=== PATIENT | male | born 1960 | race Caucasian/White ===

== ENCOUNTER 2017-11-03 17:34 | Emergency (ER) | payer OTHER ==
[2017-11-03 17:59] VITALS: RESP 18
--- NOTE | 2017-11-03 18:52 | ED PDOC ---
Arrival/HPI - General Chief Complaint: GI Problem Time Seen by Provider: 11/03/17 18:45 Historian: Patient - History of Present Illness Narrative History of Present Illness (Text): 11/03/17 18:47 A 57 year old male, whose past medical history includes hyperlipidemia and diabetes, presents to the emergency department for a complaint of chest pain since this morning. He notes that he woke up this morning with the chest pain which radiated to the back with associated tingling sensation in both hands. The patient describes the chest hanks as pressure. He notes that he is currently experiencing heartburn and nausea. The patient denies fevers, chills, headache, dizziness, shortness of breath, dyspnea on exertion, cough, abdominal pain, vomiting, diarrhea, back pain, neck pain, urinary/bowel changes, or any other complaint. Time/Duration: Other (This morning) Symptom Onset: Sudden Symptom Course: Unchanged Activities at Onset: Rest, Light Context: Home Past Medical History - Provider Review Nursing Documentation Reviewed: Yes - Infectious Disease Hx of Infectious Diseases: None - Neurological Other/Comment: Diabetic neuropathy in hands and feet. - Endocrine/Metabolic Hx Diabetes Mellitus Type 2: Yes - Psychiatric Hx Substance Use: No Family/Social History - Physician Review Nursing Documentation Reviewed: Yes Family/Social History: No Known Family HX Smoking Status: Never Smoked Hx Alcohol Use: No Hx Substance Use: No Allergies/Home Meds Allergies/Adverse Reactions: Allergies No Known Allergies Allergy (Verified 11/03/17 18:00) Home Medications: Home Meds Medication Instructions Recorded Confirmed Gabapentin [Neurontin] 1 tab PO TID 11/03/17 11/03/17 MetFORMIN [glucoPHAGE] 1 tab PO DAILY 11/03/17 11/03/17 Review of Systems - Physician Review All systems were reviewed & negative as marked: Yes - Review of Systems Constitutional: absent: Fevers, Night Sweats Respiratory: absent: SOB, Cough Cardiovascular: Chest Pain (Chest pressure. radiating to back). absent: SHEPHERD Gastrointestinal: Nausea. absent: Abdominal Pain, Vomiting Neurological: Other (Tingling sensation of both hands.) Physical Exam Vital Signs Reviewed: Yes Vital Signs Temp Pulse Resp BP Pulse Ox 11/03/17 20:45 88 18 126/72 100 11/03/17 17:57 98.7 F 107 H 18 148/82 96 Temperature: Afebrile Blood Pressure: Normal Pulse: Tachycardic Respiratory Rate: Normal Appearance: Positive for: Well-Appearing, Non-Toxic, Comfortable Pain Distress: None Mental Status: Positive for: Alert and Oriented X 3 Finger Stick Blood Glucose: 233 - Systems Exam Head: Present: Atraumatic, Normocephalic Pupils: Present: PERRL Extroacular Muscles: Present: EOMI Conjunctiva: Present: Normal Mouth: Present: Moist Mucous Membranes Neck: Present: Normal Range of Motion Respiratory/Chest: Present: Clear to Auscultation, Good Air Exchange. No: Respiratory Distress, Accessory Muscle Use Cardiovascular: Present: Regular Rate and Rhythm, Normal S1, S2. No: Murmurs Abdomen: No: Tenderness, Distention, Peritoneal Signs Back: Present: Normal Inspection Upper Extremity: Present: Normal Inspection. No: Cyanosis, Edema Lower Extremity: Present: Normal Inspection. No: Edema Neurological: Present: GCS=15, CN II-XII Intact, Speech Normal Skin: Present: Warm, Dry, Normal Color. No: Rashes Psychiatric: Present: Alert, Oriented x 3, Normal Insight, Normal Concentration Medical Decision Making ED Course and Treatment: 11/03/17 19:13 Impression: A 57 year old male presents to the emergency department with a complaint of chest pressure radiating to his back and tingling sensation in his hands. Differential Diagnosis included but are not limited to: Chest Pain r/o ND vs. gastritis Plan: -- EKG -- Chest X-ray -- Urinalysis -- Labs -- Reassess and disposition Progress Notes: 11/03/17 19:15 EKG: Ordered, reviewed, and independently interpreted the EKG. Rate : 104BPM Rhythm : Sinus Tachycardia Interpretation : Normal axis chest x-ray: no acute pulmonary disease - Lab Interpretations Lab Results: 11/03/17 18:00 11/03/17 18:00 Lab Results 11/03/17 21:45: POC Glucose (mg/dL) 81 11/03/17 19:30: Urine Color Yellow, Urine Appearance Clear, Urine pH 6.0, Ur Specific [place] <= 1.005, Urine Protein Negative, Urine Glucose (UA) >=1000, Urine Ketones Negative, Urine Blood Negative, Urine Nitrate Negative, Urine Bilirubin Negative, Urine Urobilinogen 0.2, Ur Leukocyte Esterase Negative 11/03/17 18:08: POC Glucose (mg/dL) 233 H 11/03/17 18:00: Sodium 136, Potassium 3.8, Chloride 97 L, Carbon Dioxide 26, Anion Gap 16, BUN 13, Creatinine 0.8, Est GFR ( Amer) > 60, Est GFR (Non- Af Amer) > 60, Random Glucose 256 H, Calcium 9.5, Magnesium 2.1, Total Bilirubin 0.6, AST 25, ALT 25, Alkaline Phosphatase 73, Lactate Dehydrogenase 502, Total Creatine Kinase 184, Troponin I < 0.01, Total Protein 7.5, Albumin 4.2, Globulin 3.3, Albumin/Globulin Ratio 1.3 11/03/17 18:00: WBC 9.6, RBC 4.41, Hgb 13.6 L, Hct 39.1 L, MCV 88.7, MCH 30.8, MCHC 34.8, RDW 12.5, Plt Count 210, MPV 10.5, Gran % 75.5 H, Lymph % (Auto) 16.2 L, Edwards % (Auto) 7.0 H, Eos % (Auto) 1.0 L, Baso % (Auto) 0.3, Gran # 7.27 H, Lymph # (Auto) 1.6, Edwards # (Auto) 0.7 H, Eos # (Auto) 0.1, Baso # (Auto) 0.03 I have reviewed the lab results: Yes - RAD Interpretation Radiology Orders: 11/03/17 18:51 CHEST PORTABLE [RAD] Stat - EKG Interpretation Interpreted by ED Physician: Yes Type: 12 lead EKG - Medication Orders Current Medication Orders: Discontinued Medications Acetaminophen (Tylenol 325mg Tab) 975 mg PO STAT STA Stop: 11/03/17 20:46 Last Admin: 11/03/17 20:57 Dose: 975 mg MAR Pain/Vitals Document 11/03/17 20:57 RG (Rec: 11/03/17 20:58 RG [facility] [id number]) Presence of Pain Presence of Pain Yes Location Upper or Lower Lower Pain Location [employer] Sodium Chloride (Sodium Chloride 0.9%) 1,000 mls @ 999 mls/hr IV .Q1H1M STA Stop: 11/03/17 21:09 Last Admin: 11/03/17 20:25 Dose: 999 mls/hr eMAR Start Stop Document 11/03/17 20:25 RG (Rec: 11/03/17 20:41 [id number] Intravenous Solution Start Date 11/03/17 Start Time 20:25 Famotidine 20 mg/ (Miscellaneous) 50 mls @ 100 mls/hr IVPB STAT STA Stop: 11/03/17 20:41 Last Admin: 11/03/17 20:25 Dose: 100 mls/hr eMAR Start Stop Document 11/03/17 20:25 RG (Rec: 11/03/17 20:39 [id number][facility] Intravenous Solution Start Date 11/03/17 Start Time 20:25 Ketorolac Tromethamine (Toradol) 30 mg IVP STAT STA Stop: 11/03/17 21:37 Last Admin: 11/03/17 21:42 Dose: 30 mg MAR Pain Assessment Document 11/03/17 21:42 RG (Rec: 11/03/17 21:47 [id number] Pain Reassessment Is this a pain reassessment? Yes Presence of Pain Presence of Pain Yes Pain Scale Used Pain Scale Used Numeric Location Left, Right or Bilateral Left Pain Location Body Site Chest IVP Administration Document 11/03/17 21:42 RG (Rec: 11/03/17 21:47 [id number][facility] Charges for Administration # of IVP Administrations 1 Ondansetron HCl (Zofran Inj) 4 mg IVP STAT STA Stop: 11/03/17 20:14 Last Admin: 11/03/17 20:35 Dose: 4 mg IVP Administration Document 11/03/17 20:35 (Rec: 11/03/17 20:40 [id number][facility] Charges for Administration # of IVP Administrations 1 - Scribe Statement The provider has reviewed the documentation as recorded by the Scribe Urvashi Jaimes Provider Scribe Attestation: All medical record entries made by the Scribe were at my direction and personally dictated by me. I have reviewed the chart and agree that the record accurately reflects my personal performance of the history, physical exam, medical decision making, and the department course for this patient. I have also personally directed, reviewed, and agree with the discharge instructions and disposition. Disposition/Present on Arrival - Present on Arrival Any Indicators Present on Arrival: No History of DVT/PE: No History of Uncontrolled Diabetes: No Urinary Catheter: No History of Decub. Ulcer: No History Surgical Site Infection Following: None - Disposition Have Diagnosis and Disposition been Completed?: Yes Diagnosis: Chest pain, Gastritis Disposition Time: 22:17 Patient Plan: Discharge Condition: GOOD Discharge Instructions (ExitCare): Chest Pain (ED), Gastritis, Chest Pain Additional Instructions: Follow up with Dr sun in a few days and take pepcid as directed. Referrals: Marvin Burnett MD [Primary Care Provider] - Follow up with primary Forms: [email or web address] ([place])
[2017-11-03 19:28] LABS: BASO # 0.03 K/mm3 (0.0-2.0); BASO % 0.3 % (0.0-3.0); EOS # 0.1 (0.0-0.7); GRAN # 7.27 (1.4-6.5); GRAN % 75.5 % (50.0-68.0); HEMOGLOBIN 13.6 g/dL (14.0-18.0); LYMPH # 1.6 (1.2-3.4); LYMPH % 16.2 % (22.0-35.0); MEAN CELL VOLUME 88.7 fl (80.0-105.0); MEAN CORPUSCULAR HEMOGLOBIN 30.8 pg (25.0-35.0); MEAN CORPUSCULAR HGB CONC 34.8 g/dl (31.0-37.0); MEAN PLATELET VOLUME 10.5 fl (7.0-11.0); MONO # 0.7 (0.1-0.6); RBC 4.41 10^6/uL (3.5-6.1); RED CELL DISTRIBUTION WIDTH 12.5 % (11.5-14.5); WHITE BLOOD COUNT 9.6 10^3/ul (4.5-11.0)
[2017-11-03 19:44] LABS: TROPONIN I < 0.01 ng/mL
[2017-11-03 19:59] LABS: ALB/GLOB RATIO 1.3 (1.1-1.8); ALBUMIN 4.2 g/dL (3.0-4.8); ALT/SGPT 25 U/L (7-56); AST/SGOT 25 U/L (17-59); BLOOD UREA NITROGEN 13 mg/dL (7-21); CALCIUM 9.5 mg/dL (8.4-10.5); GFR AFRICAN-AMERICAN > 60; GFR NON-AFRICAN AMERICAN > 60
[2017-11-03] MEDS ORDERED: Sodium Chloride 0.9% 1,000 ML IV STA (20:09)
[2017-11-03] MEDS ORDERED: Famotidine 20mg/50ml 20 MG in Premixed IV 50 EA IVPB STA (20:12)
[2017-11-03 20:20] LABS: URINE BILIRUBIN NEGATIVE (NEGATIVE); URINE BLOOD NEGATIVE (NEGATIVE); URINE GLUCOSE (UA) >=1000 mg/dL (NEGATIVE); URINE LEUKOCYTE ESTERASE NEGATIVE Leu/uL (NEGATIVE); URINE PROTEIN NEGATIVE mg/dL (<30 mg/dL); URINE UROBILINOGEN 0.2 E.U./dL (<1 E.U./dL)
[2017-11-03 20:22] LABS: URINE APPEARANCE CLEAR (CLEAR); URINE COLOR YELLOW (YELLOW)
[2017-11-03 21:23] VITALS: O2SAT 100
[2017-11-04 00:40] VITALS: BP 128/67; PULSE 99; TEMP 98.8
--- NOTE | 2017-11-04 08:57 | RAD ---
Date of service: 11/03/2017 HISTORY: chest pain COMPARISON: No prior. FINDINGS: LUNGS: No active pulmonary disease. PLEURA: No significant pleural effusion identified, no pneumothorax apparent. CARDIOVASCULAR: Normal. OSSEOUS STRUCTURES: No significant abnormalities. VISUALIZED UPPER ABDOMEN: Normal. OTHER FINDINGS: None. IMPRESSION: No active disease.
--- NOTE | 2017-11-04 17:10 | CARD ---
APPROVED REPORT Date of service: 11/03/2017 EKG Measurement Heart [id number] <Conclusion> Sinus tachycardia Otherwise normal ECG
== END 2017-11-03 22:45 | disposition home or self-care (01) ==
LOC: ED 17:34
DX: R07.9 Chest pain, unspecified (principal); K29.70 Gastritis, unspecified, without bleeding; E11.40 Type 2 diabetes mellitus with diabetic neuropathy, unspecified; E78.5 Hyperlipidemia, unspecified
CPT/HCPCS: 71045; 80053; 81003; 82550; 82948; 83615; 83735; 84484; 85025; 93005; 96374; 96375; 99283; J1885; J2405; J7030